=== PATIENT | male | born 1995 | race Hispanic/Latino ===

== ENCOUNTER 2018-10-01 11:07 | Day surgery (SDC) | payer BC ==
[2018-09-28 15:44] VITALS: BMI 31.9
[2018-10-01] MEDS ORDERED: Propofol 10 mg/ml Inj (20 ML) ONE ×2 (13:09→13:40)
[2018-10-01] MEDS ORDERED: Lactated Ringer's 1,000 ML IV SCH (13:30)
[2018-10-01 14:21] VITALS: RESP 16
[2018-10-01 14:46] VITALS: BP 125/60; PULSE 54; TEMP 97.7; O2SAT 99
== END 2018-10-01 15:12 | disposition home or self-care (01) ==
LOC: ENDO 11:07
PROVIDERS: ATTEND Internal Medicine Gastroenterology
DX: R19.7 Diarrhea, unspecified (principal); K64.8 Other hemorrhoids; K21.9 Gastro-esophageal reflux disease without esophagitis; Z80.0 Family history of malignant neoplasm of digestive organs
CPT/HCPCS: 45380; 88305; J2001; J2704; J7040; J7120